=== PATIENT | female | born 2000 | race Caucasian/White ===

== ENCOUNTER 2022-01-04 21:37 | Emergency (ER) | payer BC ==
[2022-01-04 22:35] LABS: Bacteria/HPF 4+ HPF (None Seen); Bilirubin Negative (Negative); Blood, Urine 2+ (Negative); Clarity Turbid (Clear); Glucose, Urine (Dipstick) Normal (Negative); Ketone, Urine Negative (Negative); Leukocyte 500 Leu/uL (Negative); Nitrite 2+ (Negative); Pregnancy Test - Urine (BHCG) Negative (Negative); Pregu Control Background? CLEAR/WHITE (CLR/WHITE); Pregu Control Bar Appear? YES (CONTROL BAR); Protein, Urine (Dipstick) 70 mg/dL (Neg-Trace); Specific Gravity 1.025 (1.002-1.036); Specific Gravity, Urine 1.025 (1.002-1.036); Urobilinogen Normal mg/dL (Less than 2); WBC/HPF Greater than 50 HPF (0-3); pH, Urine 6.5 (5.0-9.0)
== END 2022-01-04 23:07 | disposition home or self-care (01) ==
LOC: ERS 21:37
DX: N39.0 Urinary tract infection, site not specified (principal); A60.04 Herpesviral vulvovaginitis
CPT/HCPCS: 81003; 81015; 81025; 99283